=== PATIENT | female | born 1975 | race Caucasian/White ===

== ENCOUNTER 2017-04-29 05:42 | Day surgery (SDC) | payer OTHER ==
--- NOTE | 2017-04-24 19:10 | Pre-Procedure Note/Attestation ---
Pre-Procedure Note/Attestation Complete Prior to Procedure Planned Procedure: right Procedure Narrative: 1. Remove old T-tube right ear canal 2. Right ear myringotomy 3. Place new T-tube right ear drum. Indications for Procedure Pre-Operative Diagnosis: Chronic right ear eustachain tube dysfunction Attestation I attest that I discussed the nature of the procedure; its benefits; risks and complications; and alternatives (and the risks and benefits of such alternatives ), prior to the procedure, with the patient (or the patient's legal senior sales representative). I attest that, if there was a reasonable possibility of needing a blood transfusion, the patient (or the patient's legal senior sales representative) was given the [place] Department [facility] standardized written summary, pursuant to the [place] Blood Safety Act ([place] Health and Safety Code # 1645, as amended). I attest that I re-evaluated the patient just prior to the surgery and that there has been no change in the patient's H&P,job # [id number] AJ NEUMANN Apr 24, 2017 19:10
[2017-04-29] VITALS (13 sets, daily range): BP systolic 98–123; BP diastolic 41–75
[~2017-04-29] VITALS: Ht 165.1 cm; Wt 59.9 kg
[~2017-04-29 05:42] MED LIST: ALLERCLEAR D-21 EACH PO; CIPRODEX OTIC7.5 M1 RIGHT EAR; TRAZODONE HCL50 MG ORAL
[2017-04-29] MEDS ORDERED: Dexamethasone 4mg/ml vial IVP ONE (06:00)
[2017-04-29] MEDS ORDERED: ceFAZolin sod 1 GM in NS 55 ML IV ONE (06:00)
[2017-04-29] MEDS ORDERED: DEXAMETHASONE 0.1% TOPIC ONE (07:30)
[2017-04-29] MEDS ORDERED: CIPROFLOXACIN 0.3% TOPIC ONE (07:30)
[2017-04-29] MEDS ORDERED: LR 1000ml ONE (08:00)
[2017-04-29] MEDS ORDERED: fentaNYL 100 mcg/2 mL IV ONE (08:00)
[2017-04-29] MEDS ORDERED: Sterile Water Irrig 1000ml IRRIG ONE (08:00)
[2017-04-29] MEDS ORDERED: Midazolam 2mg/2ml Inj ONE (08:00)
[2017-04-29] MEDS ORDERED: Propofol 10mg/ml 20ml IV ONE (08:00)
[2017-04-29] MEDS ORDERED: Meperidine 25mg/0.5ml Inj (FOR RIGORS ONLY) ONE (08:11)
[2017-04-29] MEDS ORDERED: Ketorolac 30mg Inj IV PRN (08:15)
[2017-04-29] MEDS ORDERED: Meperidine 25mg/0.5ml Inj (FOR RIGORS ONLY) IV PRN (08:15)
[2017-04-29] MEDS ORDERED: Metoclopramide 10mg/2ml Inj IVP PRN ×2 (08:15→14:01)
[2017-04-29] MEDS ORDERED: DiphenhydrAMINE 50mg/ml Inj IVP PRN (08:15)
[2017-04-29] MEDS: Midazolam 2mg/2ml Inj IVP PRN ×2 (08:15→08:43)
[2017-04-29] MEDS: Hydromorphone 0.5mg/0.5ml inj IVP PRN ×2 (08:31→08:58)
--- NOTE | 2017-04-29 09:09 | Brief Operative Note ---
Immediate Post Operative Note Operative Note Pre-op Diagnosis: Chronic right ear eustachain tube dysfunction Procedure: 1. Removal of displaced T-tube: right ear 2. Right TM myringotomy 3. Placement of new T-tube: right ear Post-op Diagnosis: same as pre-op Surgeon: Aj [facility] Sanitary Technician: deanna Additional Surgeons: robina Anesthesiologist: Bucky Anesthesia: general Specimen: none Complications: none Condition: stable Estimated Blood Loss: minimal Drains: none Packing: none Implant(s) used?: Yes - T-tube AJ NEUMANN Apr 29, 2017 09:09
--- NOTE | 2017-04-29 09:29 | Anethesia Preoperative Eval ---
Anesthesia Pre-op PMH/ROS General Date of Evaluation: Apr 29, 2017 Time of Evaluation: 07:15 Anesthesiologist: Tristan ASA Score: ASA 2 Mallampati Score Class I : Soft palate, uvula, fauces, pillars visible Class II: Soft palate, uvula, fauces visible Class III: Soft palate, base of uvula visible Class IV: Only hard plate visible Mallampati Classification: Class II Surgeon: Feliz Diagnosis: R ear recurrent otitis media Surgical Procedure: R ear tube replacement Anesthesia History: none Family History: no anesthesia problems Allergies: Coded Allergies: SHRIMP (Verified Allergy, Severe, "cant breath", 04/28/17) Medications: see eMAR Past Medical History Cardiovascular: Denies: CAD, HTN, [place], arrhythmia, other, valve dz Pulmonary: Denies: COPD, HANG, asthma, other Gastrointestinal/Genitourinary: Reports: GERD - mild, Denies: CRI, ESRD, other Neurologic/Psychiatric: Reports: depression/anxiety, Denies: CVA, TIA, dementia, other Endocrine: Denies: DM, hypothyroidism, other, steroids HEENT: Denies: [place] (L), [place] (R), cataract (L), cataract (R), glaucoma, other Hematology/Immune: Denies: DVT, anemia, bleeding disorder, other Musculoskeletal/Integumentary: Denies: DDD, DJD, OA, RA, edema, other PMH Narrative: as above PSxH Narrative: R ear Sx Anesthesia Pre-op Phys. Exam Physician Exam Last Vital Signs Date Time Temp Pulse Resp B/P Pulse Ox O2 Delivery O2 Flow Rate FiO2 04/29/17 09:20 97.7 58 15 115/67 99 Room Air 04/29/17 08:55 6.0 Constitutional: NAD Neurologic: CN 2-12 intact Cardiovascular: RRR, no M/R/G Respiratory: CTA Gastrointestinal: S/NT/ND Airway Exam Mallampati Score: Class II MO: full Neck: flexible ROM: full Teeth: intact Dentures: no lower, no upper Anesthesia Pre-op A/P Labs see chart Urine Test Test 04/29/17 05:55 Urine HCG, Qualitative Negative Risk Assessment & Plan Assessment: ASA 2 Plan: GA with LMA patients request Status Change Before Surgery: No Pre-Antibiotics Drug: Ancef 1gr. Given Within 1 Hr of Incision: Yes Time Given: 07:40 EDMUNDO OROZCO M.D. Apr 29, 2017 09:29
--- NOTE | 2017-04-29 09:31 | Immediate Post-Op Evaluation ---
Immediate Post-Op Evalulation Immediate Post-Op Evalulation Procedure: R ear tube replacement Date of Evaluation: Apr 29, 2017 Time of Evaluation: 08:09 IV Fluids: 600 Blood Products: none Estimated Blood Loss: none Urinary Output: none Blood Pressure Systolic: 108 Blood Pressure Diastolic: 76 Pulse Rate: 78 Respiratory Rate: 20 O2 Sat by Pulse Oximetry: 99 Temperature (Fahrenheit): 97.6 Pain Score (1-10): 2 Nausea: No Vomiting: No Complications none Patient Status: awake, patent, none Hydration Status: adequate EDMUNDO OROZCO M.D. Apr 29, 2017 09:31
--- NOTE | 2017-04-29 09:32 | 48 Hour Post Anesthesia Eval ---
Post Anesthesia Evaluation Procedure: R ear tube replacement Date of Evaluation: Apr 29, 2017 Time of Evaluation: 09:31 Blood Pressure Systolic: 112 0: 59 Pulse Rate: 68 Respiratory Rate: 18 Temperature (Fahrenheit): 97.6 O2 Sat by Pulse Oximetry: 98 Airway: patent Nausea: No Vomiting: No Pain Intensity: 2 Hydration Status: adequate Cardiopulmonary Status: stable Mental Status/LOC: patient returned to baseline Follow-up Care/Observations: n/a Post-Anesthesia Complications: none Follow-up care needed: ready to discharge EDMUNDO OROZCO M.D. Apr 29, 2017 09:32
[2017-04-29] MEDS ORDERED: HYDROmorphone 1mg/ml Carpuject SUBQ PRN (14:01)
[2017-04-29] MEDS ORDERED: Norco 5mg/325mg tab ORAL PRN (14:01)
--- NOTE | 2017-04-30 06:16 | Operative Note - Dictated ---
DATE OF OPERATION: 04/29/2017 SURGEON: Dorian Piper M.D. SELF STORAGE MANAGER: None. ANESTHESIOLOGIST: Cedric Hudson M.D. ANESTHESIA: LMA general anesthesia. INDICATION FOR PROCEDURE: The patient with a T-tube which was displaced from her right tympanic membrane, which was placed for chronic otalgia with changes in elevation and pressurization. 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 Additionally, she has had bad experiences prior to me with the tube being placed and has developed a phobia and that is why she is actually being put to sleep in an operating room. PREOPERATIVE DIAGNOSES: 1. Tympanostomy tube displaced in the right ear canal. 2. Chronic otalgia. 3. Right ear otitis media. POSTOPERATIVE DIAGNOSES: 1. Tympanostomy tube displaced in the right ear canal. 2. Chronic otalgia. 3. Right ear otitis media. FINDINGS: Tube is in the ear canal, but the tympanic membrane is healed. Once a myringotomy was made in the right tympanic membrane, there was no fluid. PROCEDURE: 1. Removal of foreign body, right ear canal (old T-tube). 2. Myringotomy, right tympanic membrane. 3. Placement of T-tube, right ear drum. TECHNIQUE: A time-out was performed. All agreed as to the procedure and equipment required. Under microscopic vision, the old T-tube was removed with an alligator and additional cerumen removed. I then under direct microscopic vision made a radial incision and placed the new T-tube in good position. Both flanges could be seen in the middle ear while the T-tube was coming out into the ear canal. Three drops of Cortisporin was placed. Sponge and needle count was correct. ESTIMATED BLOOD LOSS: 1 mL. COUNTS: None. DRAINS: T-tube as noted above. Dorian Piper M.D. DR: YEIMI JOB#: [id number] CC: LISSETH
--- NOTE | 2017-04-30 15:45 | Pre-op HX & Phy Repo 2 SIG ---
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 This has been done previously. PAST MEDICAL HISTORY: Significant for general allergies, but no allergies to medications. SOCIAL HISTORY: She is , no children. Normal nutrition. 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 Exercises, takes supplements and vitamins on a regular basis. MEDICATIONS: She does use Flonase. PHYSICAL EXAMINATION: GENERAL: She is a 41-year-old right-handed individual who is 5 feet and 5 inches, 119 pounds. BMI 19.81. VITAL SIGNS: Blood pressure when I last saw her on 04/17/2017 was 120/80 and heart rate 70. ENT: Ears, left ear positive light reflex. Normal canal. Right ear, T-tube out of the eardrum but in the ear canal. Nose is normal. Mouth is normal. BREASTS: Exam not undertaken and is not indicated, and this is done on a regular basis by her private physician. HEART: Normal S1 and S2. No S3 or S4. Normal rate and rhythm. CHEST: Clear to auscultation and percussion. ABDOMEN: Soft and nontender. Normoactive bowel sounds. NEUROLOGIC: Cranial nerves II through XII are grossly normal. EXTREMITIES: Grossly normal. GENITOURINARY: Exam not undertaken and is not indicated, and this is done on a regular basis by her private physician. ASSESSMENT: She is cleared for surgery. She does not need labs. She is otherwise healthy. PLAN: Remove T-tube in the right ear canal and replace it with a new T-tube. Myringotomy is most probably necessary in the right ear. Dorian Piper M.D. DR: MARGOTH JOB#: [id number] CC:
== END 2017-04-29 09:50 | disposition home or self-care (01) ==
LOC: SUR 05:42
DX: H69.81 Other specified disorders of Eustachian tube, right ear (principal); G89.29 Other chronic pain; H92.01 Otalgia, right ear; K21.9 Gastro-esophageal reflux disease without esophagitis; F32.9 Major depressive disorder, single episode, unspecified; F41.9 Anxiety disorder, unspecified; Z91.013 Allergy to seafood
CPT/HCPCS: 69436; 81025; J0690; J1170; J1200; J1885; J2250; J2405; J2704; J3010; J7120; 94003; 94150; J2180

== ENCOUNTER 2019-04-13 05:44 | Day surgery (SDC) | payer OTHER ==
--- NOTE | 2019-04-12 19:08 | Pre-Procedure Note/Attestation ---
Pre-Procedure Note/Attestation Complete Prior to Procedure Planned Procedure: right Procedure Narrative: Right ear myringotomy and T-tube placement in right ear. Indications for Procedure Pre-Operative Diagnosis: Chronic middle ear otitis media. Attestation I attest that I discussed the nature of the procedure; its benefits; risks and complications; and alternatives (and the risks and benefits of such alternatives ), prior to the procedure, with the patient (or the patient's legal investment representative). I attest that, if there was a reasonable possibility of needing a blood transfusion, the patient (or the patient's legal investment representative) was given the [facility] standardized written summary, pursuant to the [place] Blood Safety Act ([place] Health and Safety Code # 1645, as amended). I attest that I re-evaluated the patient just prior to the surgery and that there has been no change in the patient's H&P. Dorian Piper MD Apr 12, 2019 19:08
--- NOTE | 2019-04-12 19:17 | History and Physical ---
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 Allergy and Immunology ROS: no allergic symptoms or urticaria Hematological and Lymphatic ROS: no swollen glands, unusual bleeding or bruising Endocrine ROS: no polyuria, polydipsia, weight changes, temperature intolerance Respiratory ROS: no cough, shortness of breath, or wheezing Cardiovascular ROS: no chest pain or dyspnea on exertion Gastrointestinal ROS: no abdominal pain, change in bowel habits, or black or bloody stools Musculoskeletal ROS: no myalgias or arthralgias Neurological ROS: no TIA or stroke symptoms Dermatological ROS: no new or changing skin lesions, rashes or pruritis Physical Exam Vitals: 65 INCHES, WT 120 bp 120/80 hr 13 rr 13 Intake/Output Summary (Last 24 hours) General appearance: alert, cooperative, no distress, appears stated age Head: Normocephalic, without obvious abnormality, atraumatic Eyes: conjunctivae/corneas clear. PERRL, EOM's intact. Throat: Lips, mucosa, and tongue normal. Teeth and gums normal EARS: RIGHT TM WITH SMALL HOLE AND NO T TUBE IN PLACE, WNL Neck: supple, symmetrical, trachea midline, no adenopathy, thyroid: not enlarged, symmetric, no tenderness/mass/nodules, no carotid bruit and no JVD Lungs: clear to auscultation bilaterally Heart: regular rate and rhythm, S1, S2 normal, no murmur, click, rub or gallop Abdomen: soft, non-tender. Bowel sounds normal. No masses, no organomegaly Extremities: extremities normal, atraumatic, no cyanosis or edema Pulses: 2+ and symmetric Skin: Skin color, texture, turgor normal. No rashes or lesions Neurologic: Grossly normal Laboratories:none indicated in otherwise healthy female under 45 years old. Estimated:time 10 minutes Imaging and ancillary data: none Assessment/Problem List: Chronic serous otitis media Plan:Right ear myringotomy and t-tube DVT Prophylaxis: scd Code status: full Hospital Classification declaration: Based on this initial evaluation, and depending on the patient's clinical course, I anticipate that this patient will NOT require hospitalization as an outpt. Disposition: Once the patient is stable to leave the hospital, I anticipate the patient will likely be discharged to the following environment-home I spent 70 minutes on this patient's case, and minutes was dedicated to counseling and/or care coordination. Case was discussed with Time of note may not reflect time of encounter. Dorian Piper MD Apr 12, 2019 19:17
[2019-04-13] VITALS (10 sets, daily range): BP systolic 97–107; BP diastolic 45–65
[~2019-04-13] VITALS: Ht 165.1 cm; Wt 55.8 kg
[~2019-04-13 05:44] MED LIST changes: +NKM
[2019-04-13] MEDS ORDERED: ceFAZolin sod 1 GM in D5W 55 ML IV ONE (07:20)
[2019-04-13] MEDS ORDERED: Lidocaine 1% 10mg/ml/Epi 0.005mg/ml 30ml vial INJ ONE (07:20)
[2019-04-13] MEDS ORDERED: Neosporin Oint Ud Pkt TOPIC ONE (07:20)
[2019-04-13] MEDS ORDERED: Propofol 200mg/20ml IV ONE (07:21)
[2019-04-13] MEDS ORDERED: Midazolam 2mg/2ml Inj ONE ×2 (07:21→07:39)
[2019-04-13] MEDS ORDERED: fentaNYL 100 mcg/2 mL IV ONE (07:21)
[2019-04-13] MEDS ORDERED: Lidocaine 1% MPF 10mg/ml 5ml ONE (07:21)
[2019-04-13] MEDS ORDERED: Dexamethasone 20mg/5ml IVP ONE (07:30)
[2019-04-13] MEDS ORDERED: LR 1000ml ONE (07:30)
[2019-04-13] MEDS ORDERED: Sterile Water Irrig 1000ml IRRIG ONE (07:30)
[2019-04-13] MEDS ORDERED: Dexamethasone 4mg/ml vial ONE (08:00)
[2019-04-13] MEDS ORDERED: Ciprofloxacin Opth Soln 2.5ml RIGHT EAR SCH (08:00)
[2019-04-13] MEDS ORDERED: HYDROcodone/Acetamin 5/325 tab ORAL PRN (08:15)
[2019-04-13] MEDS ORDERED: HYDROmorphone 1mg/ml Carpuject SUBQ PRN (08:15)
[2019-04-13] MEDS ORDERED: Metoclopramide 10mg/2ml Inj IVP PRN ×2 (08:15→08:30)
--- NOTE | 2019-04-13 08:15 | Brief Operative Note ---
Immediate Post Operative Note Operative Note Chief Complaint: Chronic right middle ear otitis media Pre-op Diagnosis: Chronic middle ear otitis media. Procedure: 1. Removal of old T-tube right ear 2. Right ear myringotomy 3. Placement of new [id number] ear Post-op Diagnosis: same as pre-op Surgeon: Dorian Piper Technology Assistant: none Additional Surgeons: melvinne Anesthesiologist: Darion Anesthesia: general Specimen: yes - old T-tube gross specimen only Complications: none Condition: stable Fluids: D5LR Estimated Blood Loss: minimal Packing: none Implant(s) used?: Yes - T-tube Dorian Piper MD Apr 13, 2019 08:15
[2019-04-13] MEDS ORDERED: NORCO 10-325 T1 EACH ORAL (08:17)
[2019-04-13] MEDS ORDERED: CILOXAN 0.3% O1 DROP RIGHT EAR (08:17)
--- NOTE | 2019-04-13 08:18 | Discharge Instructions ---
Discharge Instructions Discharge Instructions Follow Up Orders In Dr. Piper's office next week-pt. has appt. already scheduled. Return to Work/School on: Apr 15, 2019 For Congestive Heart Failure Reminder Report to your physician any weight gain of 5 pounds or more in one week. Dorian Piper MD Apr 13, 2019 08:18
--- NOTE | 2019-04-13 08:25 | Anethesia Preoperative Eval ---
Anesthesia Pre-op PMH/ROS General Date of Evaluation: Apr 13, 2019 Anesthesiologist: Darion ASA Score: ASA 2 Mallampati Score Class I : Soft palate, uvula, fauces, pillars visible Class II: Soft palate, uvula, fauces visible Class III: Soft palate, base of uvula visible Class IV: Only hard plate visible Mallampati Classification: Class II Surgeon: Feliz Diagnosis: Right ear pain Surgical Procedure: Right myringotomy with t tube placement Anesthesia History: none Family History: no anesthesia problems Allergies: Coded Allergies: SHRIMP (Verified Allergy, Severe, "cant breath", 04/28/17) Medications: see eMAR Patient NPO?: Yes NPO Date: Apr 12, 2019 NPO Time: 22:00 Past Medical History Cardiovascular: Denies: HTN, CAD, [place], valve dz, arrhythmia, other Pulmonary: Denies: asthma, COPD, HANG, other Gastrointestinal/Genitourinary: Denies: GERD, CRI, ESRD, other Neurologic/Psychiatric: Reports: depression/anxiety; Denies: dementia, CVA, TIA, other Endocrine: Denies: DM, hypothyroidism, steroids, other HEENT: Denies: cataract (L), cataract (R), glaucoma, [place] (L), [place] (R), other Hematology/Immune: Denies: anemia, DVT, bleeding disorder, other Musculoskeletal/Integumentary: Denies: OA, RA, DJD, DDD, edema, other PSxH Narrative: right hand surgery, right ear sx x 5 Anesthesia Pre-op Phys. Exam Physician Exam Last Vital Signs Date Time Temp Pulse Resp B/P (MAP) Pulse Ox O2 Delivery O2 Flow Rate FiO2 04/13/19 06:41 Room Air 04/13/19 06:25 97.0 61 18 97/57 97 Constitutional: other - moderately anxious Cardiovascular: RRR Respiratory: CTA Airway Exam Mallampati Score: Class I MO: full ROM: full Teeth: intact Anesthesia Pre-op A/P Labs see chart Urine Test Test 04/13/19 05:55 Urine HCG, Qualitative Negative (NEGATIVE) Risk Assessment & Plan Assessment: ASA II Plan: GA Status Change Before Surgery: No Pre-Antibiotics Drug: Ancef 1g Given Within 1 Hr of Incision: Yes Opal Hawkins MD Apr 13, 2019 08:25
[2019-04-13] MEDS ORDERED: LR 1000ml 1,000 ML IVLG SCH (08:26)
--- NOTE | 2019-04-13 08:26 | Immediate Post-Op Evaluation ---
Immediate Post-Op Evalulation Immediate Post-Op Evalulation Procedure: Right myringotomy with t tube placement Date of Evaluation: Apr 13, 2019 Time of Evaluation: 08:22 IV Fluids: 500 Blood Products: 0 Estimated Blood Loss: min Urinary Output: 0 Blood Pressure Systolic: 99 Blood Pressure Diastolic: 45 Pulse Rate: 53 Respiratory Rate: 16 O2 Sat by Pulse Oximetry: 100 Temperature (Fahrenheit): 98.5 Pain Score (1-10): 0 Nausea: No Vomiting: No Complications 0 Patient Status: awake, reacts, patent, none Hydration Status: adequate Drug: Ancef 1g Given Within 1 Hr of Incision: Yes Opal Hawkins MD Apr 13, 2019 08:26
--- NOTE | 2019-04-13 08:27 | 48 Hour Post Anesthesia Eval ---
Post Anesthesia Evaluation Procedure: Right myringotomy with t tube placement Date of Evaluation: Apr 13, 2019 Airway: patent Nausea: No Vomiting: No Pain Intensity: 0 Hydration Status: adequate Cardiopulmonary Status: at baseline Mental Status/LOC: patient returned to baseline Post-Anesthesia Complications: 0 Follow-up care needed: ready to discharge Opal Hawkins MD Apr 13, 2019 08:27
[2019-04-13] MEDS ORDERED: Hydromorphone 0.5mg/0.5ml inj IVP PRN (08:30)
[2019-04-13] MEDS ORDERED: LORazepam Inj 2mg/ml 1ml IV PRN (08:30)
[2019-04-13] MEDS ORDERED: fentaNYL 100 mcg/2 mL IV PRN (08:30)
[2019-04-13] MEDS ORDERED: DiphenhydrAMINE 50mg/ml Inj IVP PRN (08:30)
[2019-04-13] MEDS ORDERED: Midazolam 2mg/2ml Inj IVP PRN (08:30)
[2019-04-13] MEDS ORDERED: Ketorolac 30mg Inj IV PRN (08:30)
--- NOTE | 2019-04-13 09:30 | Operative Note - Dictated ---
DATE OF OPERATION: 04/13/2019 SURGEON: Dorian Piper M.D. OFFICE MESSENGER: None. ANESTHESIOLOGIST: Dr. Orlando. ANESTHESIA: LMA general anesthesia as well as 0.mL of 1% lidocaine with 1:200,000 epinephrine injected into the subcutaneous right ear canal. 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 FINDINGS: Fluid in the middle ear. Old T-Tube had been extruded and was lying in the ear canal. PROCEDURES: 1. Removal of foreign body, old right ear T-tube. 2. Right myringotomy. 3. Placement of new T-tube. TECHNIQUE: The patient was prepped and draped in the usual manner. Time-out was performed. All agreed. I then utilizing the microscope, injected the 1% lidocaine, 1000 epinephrine as noted above. This area was then suctioned and cleaned. I then proceeded to remove the T-tube under direct microscopic vision with an Alligator. I then made a radial incision for the myringotomy tube to be placed without difficulty. Small amount of fluid was in the middle ear, which was clear, thin, and suctioned. I then placed a T-tube without difficulty. Made sure it was in good position. Two drops of Ciprodex ophthalmic was placed in the ear. ESTIMATED BLOOD LOSS: Zero. COUNTS: None. DRAINS: T-tube left in place. The patient is awake, alert, and stable in the operating room after being extubated and in the recovery room 10 minutes later. Dorian Piper M.D. DR: RADHA JOB#: [id number] CC:
== END 2019-04-13 09:50 | disposition home or self-care (01) ==
LOC: SUR 05:44
DX: H65.21 Chronic serous otitis media, right ear (principal); Z88.6 Allergy status to analgesic agent; F32.9 Major depressive disorder, single episode, unspecified; F41.9 Anxiety disorder, unspecified; Z91.013 Allergy to seafood
CPT/HCPCS: 69436; 81025; J0690; J1100; J1170; J2250; J2405; J2704; J3010; 94003; 94150

== ENCOUNTER 2019-11-02 05:58 | Day surgery (SDC) | payer OTHER ==
--- NOTE | 2019-11-01 18:15 | History & Physical ---
History of Present Illness General Date patient seen: Nov 01, 2019 Time patient seen: 12:00 Reason for Hospitalization: outp surgery for right ear myringotomy and ear tube Present Illness Allergies: Coded Allergies: SHRIMP (Verified Allergy, Severe, "cant breath", 04/28/17) Tylenol (Verified Allergy, Intermediate, rash, 11/01/19) Medication History Scheduled Ciprofloxacin (Ciprofloxacin HCl), 2 DROP RIGHT EAR TID No Known Medications* (NKM - No Known Medications*), 0 ., (Reported) Scheduled PRN Hydrocodone Bit/Acetaminophen 10-325* ([place] 10-325*), 1 TAB ORAL Q6H PRN Patient History Healthcare decision maker Resuscitation status Advanced Directive on File Review of Systems Review of Symptoms General ROS: no weight loss or fever Psychological ROS: no depression or mood changes, no memory loss Ophthalmic ROS: no visual changes or eye irritation ENT ROS: no nasal congestion, hearing loss, dizziness-FLUID BEHIND RIGHT EAR DRUM. T TUBE OUT OF POSITION. Allergy and Immunology ROS: no allergic symptoms or urticaria Hematological and Lymphatic ROS: no swollen glands, unusual bleeding or bruising Endocrine ROS: no polyuria, polydipsia, weight changes, temperature intolerance Respiratory ROS: no cough, shortness of breath, or wheezing Cardiovascular ROS: no chest pain or dyspnea on exertion Gastrointestinal ROS: denies abdominal pain, bright red blood in stool. Musculoskeletal ROS: no myalgias or arthralgias Neurological ROS: no TIA or stroke symptoms Dermatological ROS: no new or changing skin lesions, rashes or pruritis Physical Exam Physical Exam General appearance: alert, cooperative, no distress, appears stated age Head: Normocephalic, without obvious abnormality, atraumatic Eyes: conjunctivae/corneas clear. PERRL, EOM's intact. Fundi benign Throat: Lips, mucosa, and tongue normal. Teeth and gums normal Neck: supple, symmetrical, trachea midline, no adenopathy, thyroid: not enlarged, symmetric, no tenderness/mass/nodules, no carotid bruit and no JVD Lungs: clear to auscultation bilaterally Heart: regular rate and rhythm, S1, S2 normal, no murmur, click, rub or gallop Abdomen: soft, non-tender. Bowel sounds normal. No masses, no organomegaly Extremities: extremities normal, atraumatic, no cyanosis or edema Pulses: 2+ and symmetric Skin: Skin color, texture, turgor normal. No rashes or lesions Neurologic: Grossly normal RIGHT EAR-T TUBE OUT OF POSITION, FLUID BEHIND RIGHT EAR DRUM. 5 FEET 6 INCHES 120 LBS BP 120/80 HR 13 n/a not required-otherwise healthy 43 yo female. Height (Feet): 5 Height (Inches): 5 Weight (Pounds): 120 Medications none Objective Narrative Chronic serous otitis media-is a flight attenandant and can only fly with ear tube in right ear that is functional. Assessment/Plan Assessment/Plan: Right ear serous otitis media-chronic Outpt surgery for myringotomy and right t-tube. [facility] Hospital declaration OUTPATIENT: level of care is warranted for this patient because patient is a 43 year old with female who presents with chronic serious otitis media right ear. Disposition: Once the patient is stable to leave the hospital, I anticipate the patient will likely be discharged to the following environment:HOME Estimated discharge date: 11/02/2019 I spent 70 minutes on this patient's case, and 45 minutes was dedicated to counseling and/or care coordination. MIPS (Merit-based Incentive Payment System) Applicable CPT: 89816, 66556 CHECK ALL THAT ARE MET: Measure #5 (CHF): All ages. Prescribe CATHERINE/ARB upon discharge for patients with left ventricular systolic dysfunction. If not, the reason is clearly documented in the medical chart. Measure #8 (CHF): All ages. Prescribe a beta nellie upon discharge for patients with left ventricular systolic dysfunction. If not, the reason is clearly documented in the medical chart. Measure #47 Advance care plan or surrogate decision maker documented in the medical record. Measure #130 The provider has documented, updated, or reviewed the patients current medication list and has documented it in the patients note. Measure #374 (All): Send report to referring provider. Measure #407(Sepsis due to MSSA bacteremia): Age 18+ Patient treated with a beta-lactam antibiotic (Nafcillin, Oxacillin or Cefazolin) as definitive therapy. MEDICAL COMPLEXITY High complexity medical decision making (need 2/3 categories) Problem - need 4 points Acute/new problem with new plan for workup (4 points, 1 max) Acute/new problem without additional workup (3 points, 1 max) Unstable chronic problem actively being managed (2 point each, 2 max) Stable chronic problem actively being managed (1 point each, 2 max) Self-limited/transient process (constipation, muscle ache, etc) (1 point each , 2 max) Data - need 4 points Reviewed labs/imaging studies (1 points, 2 max) Independent review of imaging (EKG, xrays, etc) (2 points, 2 max) Discussed case with consult/other MD/RN (2 points, 2 max) High Risk - qualify if have one of the following: Severe exacerbation of acute problem, acute mental status change, IV narcotics , monitoring drug levels (vancomycin, INR, tacrolimus etc) Dorian Piper MD Nov 01, 2019 18:15
--- NOTE | 2019-11-01 18:22 | Pre-Procedure Note/Attestation ---
Pre-Procedure Note/Attestation Complete Prior to Procedure Planned Procedure: right Procedure Narrative: 1. Myringotomy 2. Placement of T-tube in right ear drum Indications for Procedure Pre-Operative Diagnosis: Chronic right ear serous otitis media Attestation I attest that I discussed the nature of the procedure; its benefits; risks and complications; and alternatives (and the risks and benefits of such alternatives ), prior to the procedure, with the patient (or the patient's legal electronics parts sales representative). I attest that, if there was a reasonable possibility of needing a blood transfusion, the patient (or the patient's legal electronics parts sales representative) was given the [facility] standardized written summary, pursuant to the [place] Blood Safety Act ([place] Health and Safety Code # 1645, as amended). I attest that I re-evaluated the patient just prior to the surgery and that there has been no change in the patient's H&P: Dorian Piper MD Nov 01, 2019 18:22
--- NOTE | 2019-11-01 18:23 | Brief Operative Note ---
Immediate Post Operative Note Operative Note Pre-op Diagnosis: Chronic right ear serous otitis media Procedure: Right ear myringotomy and placement of T-tube Post-op Diagnosis: same as pre-op Surgeon: Dorian Piper Bar Hostess: none Additional Surgeons: none Anesthesiologist: Dr. Lerner Anesthesia: MAC Specimen: yes - old t-tube that was misplaced Complications: none Condition: stable Fluids: D5LR Estimated Blood Loss: minimal Packing: none Implant(s) used?: Yes - T-tube Dorian Piper MD Nov 01, 2019 18:23
--- NOTE | 2019-11-01 18:25 | Discharge Instructions ---
Discharge Instructions Discharge Instructions Follow up with: next week in Dr. Piper's office-she has appt. already Diet: regular Resume Normal Activity?: Yes Pneumonia Vaccine: pt refused vaccine Influenza Vaccine (Jun to Nov): pt refused vaccine Return to Work/School on: Nov 08, 2019 Special Instructions pt has printed instructions provided by my office and reviewed with pt. For Congestive Heart Failure Reminder Report to your physician any weight gain of 5 pounds or more in one week. Dorian Piper MD Nov 01, 2019 18:25
[~2019-11-02] VITALS: Ht 165.1 cm; Wt 54.0 kg
[2019-11-02] VITALS (10 sets, daily range): BP systolic 92–116; BP diastolic 45–72
[~2019-11-02 05:58] MED LIST changes: +CILOXAN 0.3% O1 DROP RIGHT EAR; +NORCO 10-325 T1 EACH ORAL
[2019-11-02] MEDS ORDERED: PROBIOTIC1 EAC2 PO (06:45)
[2019-11-02] MEDS ORDERED: XANAX0.25 MG ORAL (06:45)
[2019-11-02] MEDS ORDERED: Midazolam 2mg/2ml Inj ONE (07:07)
[2019-11-02] MEDS ORDERED: fentaNYL 100 mcg/2 mL IV ONE (07:07)
[2019-11-02] MEDS ORDERED: Neosporin Oint Ud Pkt TOPIC ONE (07:13)
[2019-11-02] MEDS ORDERED: Lidocaine 1% 10mg/ml/Epi 0.005mg/ml 30ml vial INJ ONE (07:14)
[2019-11-02] MEDS ORDERED: ceFAZolin sod 1 GM in D5W 55 ML IV SCH (07:15)
[2019-11-02] MEDS ORDERED: Propofol 200mg/20ml IV ONE (07:16)
[2019-11-02] MEDS ORDERED: CALCIUM500 M3 PO (07:20)
[2019-11-02] MEDS ORDERED: MULTIVITAMINS1 EAC2 ORAL (07:20)
[2019-11-02] MEDS ORDERED: TURMERIC 500 M1 EAC1 PO (07:20)
[2019-11-02] MEDS ORDERED: VITAMIN D32000 UNI3 PO (07:20)
[2019-11-02] MEDS ORDERED: VITAMIN B COMP1 EAC2 ORAL (07:20)
[2019-11-02] MEDS ORDERED: MAGNESIUM100 MG PO (07:20)
[2019-11-02] MEDS ORDERED: Sterile Water Irrig 1000ml IRRIG ONE (07:28)
[2019-11-02] MEDS ORDERED: LR 1000ml ONE (07:28)
[2019-11-02] MEDS ORDERED: NS Irrig 1000ml ONE (07:28)
[2019-11-02] MEDS ORDERED: Lidocaine 1% MPF 10mg/ml 5ml ONE (07:37)
[2019-11-02] MEDS ORDERED: Ketorolac 30mg Inj ONE (07:57)
--- NOTE | 2019-11-02 08:20 | Anethesia Preoperative Eval ---
Anesthesia Pre-op PMH/ROS General Date of Evaluation: Nov 02, 2019 Time of Evaluation: 07:20 Anesthesiologist: Tristan ASA Score: ASA 2 Mallampati Score Class I : Soft palate, uvula, fauces, pillars visible Class II: Soft palate, uvula, fauces visible Class III: Soft palate, base of uvula visible Class IV: Only hard plate visible Mallampati Classification: Class II Surgeon: Feliz Diagnosis: R ear recurrent otitis Surgical Procedure: R ear myringotomy Anesthesia History: none Family History: no anesthesia problems Allergies: Coded Allergies: SHRIMP (Verified Allergy, Severe, "cant breath", 04/28/17) Medications: see eMAR Patient NPO?: Yes Past Medical History Cardiovascular: Denies: HTN, CAD, FL, valve dz, arrhythmia, other Pulmonary: Denies: asthma, COPD, HANG, other Gastrointestinal/Genitourinary: Reports: GERD - mild; Denies: CRI, ESRD, other Neurologic/Psychiatric: Reports: depression/anxiety; Denies: dementia, CVA, TIA, other Endocrine: Denies: DM, hypothyroidism, steroids, other HEENT: Denies: cataract (L), cataract (R), glaucoma, KOTLIK (L), KOTLIK (R), other Hematology/Immune: Denies: anemia, DVT, bleeding disorder, other Musculoskeletal/Integumentary: Denies: OA, RA, DJD, DDD, edema, other PMH Narrative: as above PSxH Narrative: ENT Sx. Anesthesia Pre-op Phys. Exam Physician Exam Last Vital Signs Date Time Temp Pulse Resp B/P (MAP) Pulse Ox O2 Delivery O2 Flow Rate FiO2 11/02/19 06:28 Room Air 11/02/19 06:27 97.9 75 18 100/66 99 Constitutional: NAD Neurologic: CN 2-12 intact Cardiovascular: RRR, no M/R/G Respiratory: CTA Gastrointestinal: S/NT/ND Airway Exam Mallampati Score: Class II MO: full Neck: flexible ROM: full Teeth: intact Dentures: no upper, no lower Anesthesia Pre-op A/P Labs see chart Urine Test Test 11/02/19 06:05 Urine HCG, Qualitative Negative (NEGATIVE) Risk Assessment & Plan Assessment: ASA 2 Plan: GA with LMA Status Change Before Surgery: No Pre-Antibiotics Drug: Ancef 1gr Given Within 1 Hr of Incision: Yes Time Given: 07:42 Cedric Hudson MD Nov 02, 2019 08:20
[2019-11-02] MEDS ORDERED: LR 1000ml 1,000 ML IVLG SCH (08:21)
--- NOTE | 2019-11-02 08:21 | Immediate Post-Op Evaluation ---
Immediate Post-Op Evalulation Immediate Post-Op Evalulation Procedure: R ear myringotomy with tube placement Date of Evaluation: Nov 02, 2019 Time of Evaluation: 08:21 IV Fluids: 400 Blood Products: none Estimated Blood Loss: none Urinary Output: none Blood Pressure Systolic: 102 Blood Pressure Diastolic: 56 Pulse Rate: 64 Respiratory Rate: 20 O2 Sat by Pulse Oximetry: 98 Temperature (Fahrenheit): 98.1 Pain Score (1-10): 1 Nausea: No Vomiting: No Complications none Patient Status: awake, patent, none Hydration Status: adequate Cedric Hudson MD Nov 02, 2019 08:21
[2019-11-02] MEDS ORDERED: Meperidine 25mg/0.5ml Inj (FOR RIGORS ONLY) IV PRN (08:30)
[2019-11-02] MEDS ORDERED: Metoclopramide 10mg/2ml Inj IVP PRN ×2 (08:30→09:00)
[2019-11-02] MEDS ORDERED: DiphenhydrAMINE 50mg/ml Inj IVP PRN (08:30)
[2019-11-02] MEDS ORDERED: DiphenhydrAMINE 25mg Tab ORAL PRN (09:00)
[2019-11-02] MEDS ORDERED: HYDROmorphone 1mg/ml Carpuject SUBQ PRN (09:00)
[2019-11-02] MEDS ORDERED: HYDROcodone/Acetamin 5/325 tab ORAL PRN (09:00)
--- NOTE | 2019-11-02 12:55 | 48 Hour Post Anesthesia Eval ---
Post Anesthesia Evaluation Procedure: R ear myringotomy with tube placement Date of Evaluation: Nov 02, 2019 Time of Evaluation: 10:20 Blood Pressure Systolic: 116 0: 72 Pulse Rate: 68 Respiratory Rate: 20 Temperature (Fahrenheit): 97.6 O2 Sat by Pulse Oximetry: 98 Airway: patent Nausea: No Vomiting: No Pain Intensity: 1 Hydration Status: adequate Cardiopulmonary Status: stable Mental Status/LOC: patient returned to baseline Follow-up Care/Observations: n/a Post-Anesthesia Complications: none Follow-up care needed: ready to discharge Cedric Hudson MD Nov 02, 2019 12:55
--- NOTE | 2019-11-02 14:45 | Operative Note - Dictated ---
DATE OF OPERATION: 11/02/2019 SURGEON: Dorian Piper M.D. CERTIFIED LOW VISION THERAPIST: None. ANESTHESIOLOGIST: Dr. Charlene ZAMBRANO. ANESTHESIA: LMA general anesthesia. INDICATION FOR PROCEDURE: The patient has chronic serous otitis media. Her most recent T-Tube fell out in the right ear and needs to be replaced. PREOPERATIVE DIAGNOSIS: The patient has chronic serous otitis media. Her most recent T-Tube fell out in the right ear and needs to be replaced. POSTOPERATIVE DIAGNOSIS: The patient has chronic serous otitis media. Her most recent T-Tube fell out in the right ear and needs to be replaced. FINDINGS: T-Tube was in the ear canal, but not in the ear drum. Ear drum had healed up with fluid behind the TM. PROCEDURE: 1. Removal of foreign body, right ear canal. 2. Myringotomy. 3. Placement of T-tube. TECHNIQUE: The patient prepped and draped in usual manner. Intubated via an LMA. Time-out was performed. All agreed as to the procedure to be done as well as the necessary equipment. Scope was brought into place. Ear canal cleaned with some alcohol. I was then able to remove the old T-tube and clean the ear canal. I made a myringotomy in the radial incision without difficulty. Some clear fluid was suctioned out. A T-tube was placed without difficulty. Please note, clearly could see through the TM that the "T" of the top of the T of the T-tube were medial to the tympanic membrane and that the stem of the T-tube was coming out from that point. I have put in 4 drops of Ciprodex. ESTIMATED BLOOD LOSS: Less than 1 mL. COMPLICATIONS: None. DRAINS: None. Semi-permanent T-tube placed. The patient awake and alert and stable in the operating room prior to transfer to the recovery room where she was stable as well. Dorian Piper M.D. DR: ANTON JOB#: [id number] CC: [email or web address]
== END 2019-11-02 09:30 | disposition home or self-care (01) ==
LOC: SUR 05:58
DX: H65.21 Chronic serous otitis media, right ear (principal); K21.9 Gastro-esophageal reflux disease without esophagitis; F32.9 Major depressive disorder, single episode, unspecified; F41.9 Anxiety disorder, unspecified
CPT/HCPCS: 69436; 81025; J0690; J1885; J2250; J2405; J2704; J3010; J7120; 94003; 94150; J2180